=== PATIENT | male | born 1975 | race Two or more races ===

== ENCOUNTER 2017-04-15 01:58 | Emergency (ER) | payer MEDICAID, OTHER ==
[~2017-04-15] VITALS: Ht 167.6 cm; Wt 113.4 kg
[~2017-04-15 01:58] MED LIST: ATE50T PO; LISI-285 PO
[2017-04-15] MEDS ORDERED: IPRATROPIUM BROM 0.5 MG/2.5ML INH SOL NEB ONE (02:00)
[2017-04-15] MEDS ORDERED: ALBUTEROL SULF 2.5 MG/0.5ML(0.5%) NEB SOLN HHN STA (02:00)
[2017-04-15 02:04] VITALS: BP 183/119
[2017-04-15 02:43] LABS: Basophils # (auto) 0.1 uL; Eosinophils # (auto) 0.6 uL; Eosinophils % (auto) 5.1 % (0.0-7.0); Hematocrit 43.7 % (41.0-53.0); Hemoglobin 14.6 g/dL (13.5-17.5); Lymphocytes # (auto) 2.1 uL; Lymphocytes % (auto) 18.6 % (10.0-50.0); Mean Corpuscular Hemoglobin 28.3 pg (28.0-32.0); Mean Corpuscular Hgb Conc. 33.4 g/dL (32.0-36.0); Mean Corpuscular Volume 84.8 fL (80.0-100.0); Mean Platelet Volume 7.7 fL (6.9-10.8); Monocytes % (auto) 9.4 % (0.0-12.0); Neutrophils # (auto) 7.3 uL; Neutrophils % (auto) 65.9 % (37.0-80.0); Platelet Count (auto) 251 10^3/uL (140-450); White Blood Cell 11.1 10^3/uL (4.4-10.8)
[2017-04-15 03:00] LABS: Albumin 3.3 g/dL (3.4-5.0); Calcium 8.1 mg/dL (8.5-10.1); INR 0.96 (0.9-1.15); Partial Thromboplastin Time 30.3 sec (22.64-33.71); Potassium 3.8 mmol/L (3.5-5.1); Prothrombin Time 10.5 sec (9.37-12.3)
[2017-04-15 03:02] LABS: BUN/Creatinine Ratio 15.2
[2017-04-15 03:07] LABS: Bilirubin, Total 0.2 mg/dL (0.2-1.0); Total Protein 7.4 g/dL (6.4-8.2)
== END 2017-04-15 06:04 | disposition left against medical advice (07) ==
LOC: ER 01:59
DX: J45.909 Unspecified asthma, uncomplicated (principal); Z53.21 Procedure and treatment not carried out due to patient leaving prior to being seen by health care provider
CPT/HCPCS: 36415; 71020; 80053; 84484; 85025; 85610; 85730

== ENCOUNTER 2017-04-15 09:09 | Emergency (ER) | payer MEDICAID ==
[~2017-04-15] VITALS: Ht 167.6 cm; Wt 113.4 kg
[2017-04-15 09:54] VITALS: BP 141/90
[2017-04-15] MEDS ORDERED: LEVOFLOXACIN 250 MG TAB PO ONE (10:30)
[2017-04-15] MEDS ORDERED: ALBUTEROL SULF 2.5 MG/0.5ML(0.5%) NEB SOLN NEB ONE (10:30)
[2017-04-15] MEDS ORDERED: methylPREDNISolone SOD SUCC 125 MG/2 ML VL IM ONE (10:30)
[2017-04-15] MEDS ORDERED: IPRATROPIUM BROM 0.5 MG/2.5ML INH SOL NEB ONE (10:30)
== END 2017-04-15 11:02 | disposition home or self-care (01) ==
LOC: ER 09:09
DX: J45.901 Unspecified asthma with (acute) exacerbation (principal); J20.9 Acute bronchitis, unspecified; I10 Essential (primary) hypertension
CPT/HCPCS: 94640; 99283; J2930

== ENCOUNTER 2019-05-01 22:56 | Inpatient (IN) | payer MEDICAID ==
[~2019-05-01] VITALS: Ht 167.6 cm; Wt 110.0 kg
--- NOTE | 2019-05-01 21:35 | NUR ---
Respiratory Culture Sputum sample collected and sent to lab via [facility] system. Will continue care. Addendum: 05/02/19 at 2356 by JULIO VO RN RN CORRECTION: Date of note should be 05/02/19.
[2019-05-01] MEDS ORDERED: IPRATROPIUM BROM 0.5 MG/2.5ML INH SOL NEB ONE (23:15)
[2019-05-01] MEDS ORDERED: cloNIDine HCL 0.1 MG TAB PO ONE (23:15)
[2019-05-01] MEDS ORDERED: ALBUTEROL SULF 2.5 MG/0.5ML(0.5%) NEB SOLN NEB ONE (23:15)
[2019-05-02 01:41] LABS: Hematocrit 46.8 % (41.0-53.0); Hemoglobin 15.9 g/dL (13.5-17.5); Mean Corpuscular Hemoglobin 28.6 pg (28.0-32.0); Mean Corpuscular Hgb Conc. 33.9 g/dL (32.0-36.0); Mean Corpuscular Volume 84.5 fL (80.0-100.0); Platelet Count (auto) 232 10^3/uL (140-450); Red Blood Cells 5.55 10^6/uL (4.5-5.90); Red Cell Distribution Width 13.4 % (11.8-14.3)
[2019-05-02] MEDS ORDERED: IPRATROPIUM BROM 0.5 MG/2.5ML INH SOL NEB ONE (02:00)
[2019-05-02] MEDS ORDERED: ALBUTEROL SULF 2.5 MG/0.5ML(0.5%) NEB SOLN NEB ONE ×2 (02:00→07:15)
[2019-05-02 02:01] LABS: Basophils % (manual) 0 (0.0-2.0); Blast Cells 0; Eosinophils % (manual) 0 (0-7); Metamyelocytes % 0; Myelocytes % 0; Promyelocytes % 0; Reactive Lymphocytes 0
[2019-05-02 02:04] LABS: Albumin 3.3 g/dL (3.4-5.0); Calcium 8.3 mg/dL (8.5-10.1); Magnesium 2.2 mg/dL (1.6-2.6); Potassium 4.3 mmol/L (3.5-5.1)
[2019-05-02 02:07] LABS: INR 0.96 (0.9-1.15); Partial Thromboplastin Time 30.8 sec (23.64-32.05)
[2019-05-02 02:11] LABS: Bilirubin, Total 0.2 mg/dL (0.2-1.0); Total Protein 7.7 g/dL (6.4-8.2)
[2019-05-02 02:21] LABS: Band Neutrophils % (manual) 10; Lymphocytes % (manual) 6 (10.0-50.0); Monocytes % (manual) 4 (0-12)
[2019-05-02] MEDS ORDERED: methylPREDNISolone SOD SUCC 125 MG/2 ML VL IV ONE (07:15)
[2019-05-02] MEDS ORDERED: ENOXAPARIN SOD 120 MG/0.8 ML SYRINGE SC ONE (07:30)
[2019-05-02] MEDS ORDERED: ASPirin 81 mg TAB PO ONE (07:30)
[2019-05-02 07:50] LABS: Lactic Acid w/Reflex 2.2 mmol/L (0.4-2.0)
[2019-05-02] MEDS ORDERED: ONDANSETRON HCL 4 MG/2 ML VIAL IV PRN (09:15)
[2019-05-02] MEDS ORDERED: ACETAMINOPHEN 500 MG TAB PO PRN (09:15)
[2019-05-02] MEDS ORDERED: MORPHINE SULF INJ 2 MG/ML SYRINGE 1ML IV PRN ×2 (09:15)
[2019-05-02] MEDS ORDERED: HYDROcodone-ACET 5/325MG TAB PO PRN (09:15)
[2019-05-02] MEDS ORDERED: NITROGLYCERIN 0.4 MG SL TAB SL PRN (09:15)
[2019-05-02] MEDS: ALBUTEROL SULF 2.5 MG/0.5ML(0.5%) NEB SOLN NEB SCH ×4 (09:45→22:57)
[2019-05-02] MEDS: BUDESONIDE (INHALATION) 0.5 MG/2 ML NEB NEB SCH ×2 (09:45→22:57)
[2019-05-02] MEDS: IPRATROPIUM BROM 0.5 MG/2.5ML INH SOL NEB SCH ×4 (09:45→22:57)
[2019-05-02] MEDS: cefTRIAXone 1GM/50ML D5W 50 ML IV SCH ×2 (09:48→10:00)
[2019-05-02 09:57] LABS: CRP High Sensitivity 2.19 mg/dL (< 0.3)
[2019-05-02] MEDS: SODIUM CHLORIDE 0.9% 1,000 ML IV SCH ×2 (09:57→20:13)
[2019-05-02] MEDS ORDERED: FAMOTIDINE 20 MG TAB PO SCH (10:00)
[2019-05-02] MEDS: LEVOFLOXACIN 750MG 150 ML IV ONE ×2 (10:07→10:10)
[2019-05-02] MEDS: FAMOTIDINE 20 MG TAB PO SCH (10:26)
[2019-05-02] MEDS: LISINOPRIL 10 MG TAB PO SCH (10:27)
[2019-05-02] MEDS: ASPirin-EC 81 mg tab PO SCH (10:27)
[2019-05-02] MEDS: METOPROLOL TARTRATE 25 MG TAB PO SCH ×2 (10:27→21:28)
--- NOTE | 2019-05-02 11:00 | NUR ---
PT ADMITTED TO FLOOR FROM E.R.. NO DISTRESS NOTED. PT REPORTS NO PAIN AT THIS TIME. PT ORIENTED TO UNIT AND CALL LIGHT. BED IN LOWEST LOCKED POSITION. AT BEDSIDE. VITALS: 98.1, HR 94, 02 92, BP 148/93, RR 18. URINE SAMPLE COLLECTED AND SENT TO LAB.
[2019-05-02] MEDS: AZITHROMYCIN 500MG/ 250ML 250 ML IV SCH (11:18)
[2019-05-02] MEDS ORDERED: DEXT1LIQ99 PO (11:23)
[2019-05-02] MEDS ORDERED: ALBU108A5 IN (11:23)
[2019-05-02] MEDS ORDERED: INFLUENZA QUAD 2019-2020 0.5ml SYRG IM ONE (11:45)
[2019-05-02] MEDS: amLODIPine BESYLATE 5 MG TAB PO SCH (12:13)
[2019-05-02 12:38] LABS: Amphetamine Screen, Urine POSITIVE (NEGATIVE); Barbiturate Scree,Urine NEGATIVE (NEGATIVE); Benzodiazephine Screen, Urine NEGATIVE (NEGATIVE); Cannabinoid Screen, Urine NEGATIVE (NEGATIVE); Cocaine Screen, Urine NEGATIVE (NEGATIVE); Opiate Scree,Urine NEGATIVE (NEGATIVE); Phencyclidine Screen, Urine NEGATIVE (NEGATIVE)
[2019-05-02 13:00] VITALS: BP 131/97
--- NOTE | 2019-05-02 13:12 | NUR ---
PT REPORTS HE FEELS A LITTLE SOB. ASSESSED ON 2L NC IS 100%. HR 80 BPM. PT REQUESTING BREATHING TX. CALLED PBX AND PAGED RT TO PATIENT ROOM.
--- NOTE | 2019-05-02 15:58 | NUR ---
RESPIRATORY THERAPY REPORT PATIENT IS SWEATY. ASSESSED PT, PT ASLEEP IN BED, MILD DIAPHORESIS NOTED ON PT FOREHEAD. WOKE PATIENT AND ASKED HOW HE IS DOING. PT REPORTS HE FEELS BETTER NOW AFTER BREATHING TREATMENT. PT REPORTS NO SOB OR CHEST PAIN. HE REPORTS, "IM JUST TIRED." WILL CONTINUE TO MONITOR.
[2019-05-02 17:27] VITALS: BP 153/80
--- NOTE | 2019-05-02 19:30 | NUR ---
Opening Shift Note Assumed care of patient, eyes closed, respirations even and unlabored, appears asleep. No S/S of distress/SOB or pain. Audible expiratory wheezing noted. Patient awakens to name and touch. Bed in lowest locked position, side rails up x2, call light within reach. Instructed on POC and to call for assist PRN, will continue to monitor for changes Q1hr and PRN.
[2019-05-02] MEDS: MONTELUKAST SODIUM 10 MG TAB PO SCH (21:28)
[2019-05-02] MEDS: ATORVASTATIN 20 MG TAB PO SCH (21:29)
[2019-05-02 22:00] VITALS: BP 115/73
[2019-05-03 05:15] VITALS: BP 132/77
[2019-05-03 05:17] LABS: Basophils # (auto) 0 uL; Basophils % (auto) 0.1 % (0.0-2.0); Eosinophils # (auto) 0 uL; Hematocrit 46.6 % (41.0-53.0); Hemoglobin 15.3 g/dL (13.5-17.5); Lymphocytes # (auto) 1.1 uL; Mean Corpuscular Hemoglobin 28.2 pg (28.0-32.0); Mean Corpuscular Volume 85.6 fL (80.0-100.0); Monocytes # (auto) 1.4 uL; Monocytes % (auto) 10.4 % (0.0-12.0); Neutrophils # (auto) 10.8 uL; Neutrophils % (auto) 81.5 % (37.0-80.0); Nucleated Red Blood Cells % 0.1 %; Platelet Count (auto) 242 10^3/uL (140-450); Red Blood Cells 5.44 10^6/uL (4.5-5.90); Red Cell Distribution Width 13.6 % (11.8-14.3); White Blood Cell 13.3 10^3/uL (4.4-10.8)
[2019-05-03 05:40] LABS: BUN/Creatinine Ratio 19.6; Calcium 8.6 mg/dL (8.5-10.1); Potassium 4.5 mmol/L (3.5-5.1)
[2019-05-03] MEDS: SODIUM CHLORIDE 0.9% 1,000 ML IV SCH (05:57)
[2019-05-03] MEDS: ALBUTEROL SULF 2.5 MG/0.5ML(0.5%) NEB SOLN NEB SCH ×5 (06:05→22:10)
[2019-05-03] MEDS: IPRATROPIUM BROM 0.5 MG/2.5ML INH SOL NEB SCH ×5 (06:05→22:10)
--- NOTE | 2019-05-03 06:46 | NUR ---
Closing Note Patient lying in bed, eyes closed, respirations even and unlabored, appears asleep. No s/s of distress. Bed in lowest locked position, side rails up x2, call light, within reach. Will endorse care to dayshift RN.
--- NOTE | 2019-05-03 07:20 | NUR ---
Open Shift Note Received report on patient, asleep in bed with arms above head. Patient easily awoken and shows no signs of distress at this time. Patient states he feels "much better". Discussed POC with patient. Bed in lowest locked position, side rails up x2 and call light within reach. Will continue to monitor.
[2019-05-03 09:00] VITALS: BP_SYST 142; BP_SYST 147; BP_DIAS 70; BP_DIAS 87
[2019-05-03] MEDS: cefTRIAXone 1GM/50ML D5W 50 ML IV SCH (09:10)
[2019-05-03] MEDS: BUDESONIDE (INHALATION) 0.5 MG/2 ML NEB NEB SCH ×2 (09:50→22:10)
[2019-05-03] MEDS: AZITHROMYCIN 500MG/ 250ML 250 ML IV SCH (09:58)
[2019-05-03] MEDS: amLODIPine BESYLATE 5 MG TAB PO SCH (10:01)
[2019-05-03] MEDS: LISINOPRIL 10 MG TAB PO SCH (10:01)
[2019-05-03] MEDS: ASPirin-EC 81 mg tab PO SCH (10:01)
[2019-05-03] MEDS: METOPROLOL TARTRATE 25 MG TAB PO SCH ×2 (10:02→21:39)
[2019-05-03] MEDS: FAMOTIDINE 20 MG TAB PO SCH (10:07)
--- NOTE | 2019-05-03 11:05 | NUR ---
Dr Gunn at Bedside Dr Gunn at patient bedside.
[2019-05-03] MEDS ORDERED: IOHEXOL 350 MG/ML 100ML IJ ONE (11:48)
[2019-05-03] MEDS ORDERED: methylPREDNISolone SOD SUCC 125 MG/2 ML VL IV ONE (12:00)
[2019-05-03] MEDS ORDERED: ACETYLCYSTEINE 10 %(100MG/ML) SOL 4ML NEB SCH (12:00)
[2019-05-03 12:34] LABS: Hepatitis B Surface Antibody Negative
[2019-05-03 13:00] VITALS: BP 135/91
[2019-05-03 13:12] LABS: Hepatitis A Total Antibody Positive
[2019-05-03 13:29] LABS: Hepatitis B Core Total AB Negative
[2019-05-03 13:30] LABS: Hepatitis B Surface Antigen Negative (Negative); Hepatitis C Antibody Negative (Negative)
[2019-05-03 17:00] VITALS: BP 129/84
[2019-05-03 17:03] LABS: Urine WBC None Seen /hpf (0 - 3)
[2019-05-03 17:38] LABS: Urine Bacteria NONE SEEN /hpf (None Seen); Urine Blood Negative /uL (Negative)
[2019-05-03 18:12] LABS: Urine Specific Gravity > 1.050 (1.001-1.035)
[2019-05-03] MEDS: ACETYLCYSTEINE 10 %(100MG/ML) SOL 4ML NEB SCH ×2 (18:58→22:11)
--- NOTE | 2019-05-03 19:52 | NUR ---
received pt from day rn poc reviewed
[2019-05-03 21:00] VITALS: BP 145/87
[2019-05-03] MEDS: methylPREDNISolone SOD SUCC 125 MG/2 ML VL IV SCH (21:34)
[2019-05-03] MEDS: ATORVASTATIN 20 MG TAB PO SCH (21:39)
[2019-05-03] MEDS: MONTELUKAST SODIUM 10 MG TAB PO SCH (21:39)
--- NOTE | 2019-05-03 22:51 | NUR ---
resting comfortable resp even and unlabored, denies pain
--- NOTE | 2019-05-04 02:29 | NUR ---
resting with eyes closed resp even and unlabored
[2019-05-04 04:30] VITALS: BP 131/88
[2019-05-04 05:55] LABS: Basophils # (auto) 0 uL; Basophils % (auto) 0.1 % (0.0-2.0); Eosinophils # (auto) 0 uL; Hematocrit 46.5 % (41.0-53.0); Hemoglobin 15.4 g/dL (13.5-17.5); Lymphocytes # (auto) 1.2 uL; Lymphocytes % (auto) 6.6 % (10.0-50.0); Mean Corpuscular Hemoglobin 28.1 pg (28.0-32.0); Mean Corpuscular Hgb Conc. 33.1 g/dL (32.0-36.0); Mean Corpuscular Volume 84.9 fL (80.0-100.0); Monocytes # (auto) 0.4 uL; Monocytes % (auto) 2.1 % (0.0-12.0); Neutrophils # (auto) 16.6 uL; Neutrophils % (auto) 91.2 % (37.0-80.0); Nucleated Red Blood Cells % 0.1 %; Platelet Count (auto) 266 10^3/uL (140-450); Red Blood Cells 5.48 10^6/uL (4.5-5.90); Red Cell Distribution Width 13.5 % (11.8-14.3); White Blood Cell 18.2 10^3/uL (4.4-10.8)
[2019-05-04 06:08] LABS: Albumin 3.3 g/dL (3.4-5.0); Calcium 8.5 mg/dL (8.5-10.1); Potassium 4.4 mmol/L (3.5-5.1)
[2019-05-04 06:14] LABS: Bilirubin, Total 0.4 mg/dL (0.2-1.0); Total Protein 7.8 g/dL (6.4-8.2)
[2019-05-04] MEDS: ACETYLCYSTEINE 10 %(100MG/ML) SOL 4ML NEB SCH ×3 (06:39→13:23)
[2019-05-04] MEDS: IPRATROPIUM BROM 0.5 MG/2.5ML INH SOL NEB SCH ×3 (06:39→13:23)
[2019-05-04] MEDS: ALBUTEROL SULF 2.5 MG/0.5ML(0.5%) NEB SOLN NEB SCH ×3 (06:39→13:23)
[2019-05-04] MEDS: BUDESONIDE (INHALATION) 0.5 MG/2 ML NEB NEB SCH (06:39)
--- NOTE | 2019-05-04 06:58 | NUR ---
awoke resp even and unlabored
--- NOTE | 2019-05-04 06:59 | NUR ---
report given to am nurse poc reviewed
--- NOTE | 2019-05-04 07:20 | NUR ---
Open Shift Note Received report on patient, awake and sitting up in chair next to bed. Patient shows no signs of distress at this time, states he is feeling "a little bit better". Discussed POC with patient, patient verbalized understanding. Bed in lowest locked position, side rails up x2 and call light within reach. Will continue to monitor.
[2019-05-04 07:46] LABS: BUN/Creatinine Ratio 21.8
[2019-05-04] MEDS: methylPREDNISolone SOD SUCC 125 MG/2 ML VL IV SCH (09:31)
[2019-05-04] MEDS: FAMOTIDINE 20 MG TAB PO SCH (09:31)
[2019-05-04] MEDS: ASPirin-EC 81 mg tab PO SCH (09:31)
[2019-05-04] MEDS: cefTRIAXone 1GM/50ML D5W 50 ML IV SCH (09:31)
[2019-05-04] MEDS: amLODIPine BESYLATE 5 MG TAB PO SCH (09:32)
[2019-05-04] MEDS: LISINOPRIL 10 MG TAB PO SCH (09:32)
[2019-05-04] MEDS: METOPROLOL TARTRATE 25 MG TAB PO SCH (09:32)
[2019-05-04 10:01] VITALS: BP 162/89
[2019-05-04] MEDS ORDERED: methIMAzole 5 MG TAB PO ONE (11:15)
[2019-05-04 12:42] VITALS: BP 164/95
--- NOTE | 2019-05-04 13:11 | NUR ---
Paged Dr Gunn Paged Dr Gunn to inform him that even after morning med pass patient's BP still elevated at 164/95 HR 88. New orders in place.
[2019-05-04] MEDS: AZITHROMYCIN 500MG/ 250ML 250 ML IV SCH (13:13)
[2019-05-04] MEDS ORDERED: METOPROLOL TARTRATE 1MG/1ML-5ML VIAL IV ONE (13:15)
[2019-05-04 15:02] VITALS: BP 146/95
--- NOTE | 2019-05-04 17:00 | NUR ---
Discharged Discharge instructions given as ordered. Encourage to follow up with PCP as instructed. Patient given information for Dr Gunn and [facility]. All other questions and concerns addressed. Patient verbalized understanding. Medication reconciliation form completed and copy given to patient. [facility] delivered medications to bedside. IV removed with catheter intact, pressure dressing applied. Telemetry unit returned to ICU. Patient taken to vehicle via wheelchair with all personal belongings, accompanied by staff and family member. No distress noted at time of departure.
[2019-05-04] MEDS ORDERED: METOPROLOL TARTRATE 25 MG TAB PO SCH (22:00)
[2019-05-05] MEDS ORDERED: methIMAzole 5 MG TAB PO SCH (10:00)
[2019-05-05] MEDS ORDERED: AZITHROMYCIN 250 MG TAB PO SCH (10:00)
== END 2019-05-04 17:00 | disposition home or self-care (01) | DRG 141 ==
LOC: ER 23:01 → TELE 23:02 → TELE-WESTW 05-02 11:06
PROVIDERS: ADMIT Nurse Practitioner Acute Care; ATTEND Internal Medicine
DX: J45.901 Unspecified asthma with (acute) exacerbation (principal); I21.4 Non-ST elevation (NSTEMI) myocardial infarction; J96.00 Acute respiratory failure, unspecified whether with hypoxia or hypercapnia; E66.9 Obesity, unspecified; I10 Essential (primary) hypertension; F15.10 Other stimulant abuse, uncomplicated; E11.9 Type 2 diabetes mellitus without complications; E05.90 Thyrotoxicosis, unspecified without thyrotoxic crisis or storm; Z68.39 Body mass index [BMI] 39.0-39.9, adult; Z88.0 Allergy status to penicillin; Z28.21 Immunization not carried out because of patient refusal; Z83.3 Family history of diabetes mellitus; Z71.51 Drug abuse counseling and surveillance of drug abuser
CPT/HCPCS: 36415; 71045; 71046; 71275; 80048; 80053; 80061; 80307; 81001; 83036; 83605; 83735; 83880; 84439; 84443; 84484; 85007; 85025; 85027; 85610; 85730; 86141; 86703; 86704; 86706; 86708; 86803; 87040; 87070; 87205; 87340; 87804; 93005; 93306; 94640; 96365; 96372; 96375; 99291; G0378; J0696; J1956

== ENCOUNTER 2021-03-26 11:29 | Inpatient (IN) | payer MEDICAID ==
[~2021-03-26] VITALS: Ht 167.6 cm; Wt 115.8 kg
[~2021-03-26 11:29] MED LIST changes: +ALBU108A5 IN; -ATE50T PO; +DEXT1LIQ99 PO; -LISI-285 PO
[2021-03-26 15:05] LABS: Basophils # (auto) 0.1 10 ^3/uL (0-0.2); Basophils % (auto) 0.6 % (0.0-2.0); Eosinophils # (auto) 0.3 10 ^3/uL (0-0.8); Eosinophils % (auto) 3.1 % (0.0-7.0); Hematocrit 45.1 % (41.0-53.0); Lymphocytes # (auto) 1.7 10 ^3/uL (0.4-5.4); Lymphocytes % (auto) 17.4 % (10.0-50.0); Mean Corpuscular Hgb Conc. 33.3 g/dL (32.0-36.0); Mean Corpuscular Volume 84.2 fL (80.0-100.0); Monocytes # (auto) 0.9 10 ^3/uL (0-1.3); Monocytes % (auto) 9.7 % (0.0-12.0); Neutrophils # (auto) 6.6 10 ^3/uL (1.6-8.6); Neutrophils % (auto) 69.2 % (37.0-80.0); Red Blood Cells 5.36 10^6/uL (4.5-5.90); Red Cell Distribution Width 13.3 % (11.8-14.3); White Blood Cell 9.5 10^3/uL (4.4-10.8)
[2021-03-26 15:24] LABS: BUN/Creatinine Ratio 11.3; Calcium 8.6 mg/dL (8.5-10.1); Potassium 3.7 mmol/L (3.5-5.1)
[2021-03-26 15:29] LABS: Bilirubin, Total 0.5 mg/dL (0.2-1.0); Total Protein 7.2 g/dL (6.4-8.2)
[2021-03-26] MEDS ORDERED: PANTOPRAZOLE 40 MG/10 ML VIAL INJ IV ONE (17:30)
[2021-03-26] MEDS ORDERED: ASPirin 81 mg TAB PO ONE (17:30)
[2021-03-26] MEDS ORDERED: NITROGLYCERIN 0.4 MG SL TAB SL PRN (18:45)
[2021-03-26] MEDS ORDERED: HYDROcodone-ACET 5/325MG TAB PO PRN (18:45)
[2021-03-26] MEDS ORDERED: MORPHINE SULFATE INJECTION 2 MG/ML SYRG IV PRN (18:45)
[2021-03-26] MEDS ORDERED: ONDANSETRON HCL 4 MG/2 ML VIAL IV PRN (18:45)
[2021-03-26] MEDS: METOPROLOL TARTRATE 25 MG TAB PO SCH (21:45)
[2021-03-26] MEDS: hydrALAZINE HCL 20 MG/ML VL IV PRN (22:15)
[2021-03-26] MEDS: ATORVASTATIN 20 MG TAB PO SCH (22:17)
[2021-03-26] MEDS ORDERED: LISINOPRIL 20 MG TAB PO ONE (23:15)
[2021-03-26] MEDS ORDERED: LORazepam 2MG/ML-1ML VIAL IV PRN (23:15)
[2021-03-27 01:28] VITALS: BP 185/116
[2021-03-27 07:09] LABS: Basophils # (auto) 0.1 10 ^3/uL (0-0.2); Basophils % (auto) 0.5 % (0.0-2.0); Eosinophils # (auto) 0.4 10 ^3/uL (0-0.8); Eosinophils % (auto) 3.7 % (0.0-7.0); Hematocrit 47.2 % (41.0-53.0); Hemoglobin 15.9 g/dL (13.5-17.5); Lymphocytes # (auto) 1.6 10 ^3/uL (0.4-5.4); Lymphocytes % (auto) 16.1 % (10.0-50.0); Mean Corpuscular Hemoglobin 28.8 pg (28.0-32.0); Mean Corpuscular Hgb Conc. 33.7 g/dL (32.0-36.0); Mean Corpuscular Volume 85.7 fL (80.0-100.0); Monocytes % (auto) 9.6 % (0.0-12.0); Neutrophils # (auto) 7.2 10 ^3/uL (1.6-8.6); Neutrophils % (auto) 70.1 % (37.0-80.0); Red Blood Cells 5.51 10^6/uL (4.5-5.90); Red Cell Distribution Width 13.7 % (11.8-14.3); White Blood Cell 10.2 10^3/uL (4.4-10.8)
[2021-03-27] MEDS ORDERED: guaiFENesin 200 MG/10 ML UD GT PRN (07:15)
[2021-03-27 07:26] LABS: Calcium 8.7 mg/dL (8.5-10.1); Potassium 4.2 mmol/L (3.5-5.1)
[2021-03-27 07:28] LABS: BUN/Creatinine Ratio 13.3
[2021-03-27] MEDS: ASPirin 81 mg TAB PO SCH (10:11)
[2021-03-27] MEDS: LISINOPRIL 20 MG TAB PO SCH (10:12)
[2021-03-27] MEDS: METOPROLOL TARTRATE 25 MG TAB PO SCH (10:12)
[2021-03-27] MEDS: ACETAMINOPHEN 325 MG TAB PO PRN ×2 (11:39→23:27)
[2021-03-27] MEDS: hydrALAZINE HCL 20 MG/ML VL IV PRN (11:39)
[2021-03-27] MEDS ORDERED: FOLIC ACID 1 MG, MULTIPLE VITAMIN 10 ML, MAGNESIUM SULF SDV 50% 8 MEQ, THIAMINE INJ 100... INJ SCH ×10 (12:00)
[2021-03-27 13:00] VITALS: BP_SYST 134; BP_SYST 149; BP_DIAS 80; BP_DIAS 82
[2021-03-27] MEDS: METOPROLOL TARTRATE 25 MG TAB PO ONE (13:00)
[2021-03-27] MEDS ORDERED: predniSONE 20 MG TAB PO SCH (13:15)
[2021-03-27 17:16] VITALS: BP 134/80
[2021-03-27] MEDS ORDERED: ALBUTEROL SULF 2.5 MG/0.5ML(0.5%) NEB SOLN NEB PRN (18:00)
[2021-03-27 22:00] VITALS: BP 143/92
[2021-03-27] MEDS: METOPROLOL TARTRATE 50 MG TAB PO SCH (22:26)
[2021-03-27] MEDS: ATORVASTATIN 20 MG TAB PO SCH (22:27)
[2021-03-28 05:00] VITALS: BP_SYST 108; BP_SYST 140; BP_DIAS 46; BP_DIAS 74
[2021-03-28] MEDS ORDERED: ADENOSINE 84 MG in GIVE UN-DILUTED 0 ML IV STA (07:54)
[2021-03-28] MEDS: LISINOPRIL 20 MG TAB PO SCH (08:42)
[2021-03-28] MEDS: ASPirin 81 mg TAB PO SCH (08:42)
[2021-03-28 08:54] VITALS: BP 153/97
[2021-03-28] MEDS: METOPROLOL TARTRATE 50 MG TAB PO SCH ×2 (09:25→21:37)
[2021-03-28 17:09] VITALS: BP 163/97
[2021-03-28] MEDS ORDERED: MET50T PO (17:24)
[2021-03-28] MEDS ORDERED: LISI20TA28 PO (17:24)
[2021-03-28] MEDS ORDERED: ALBU108A5 IN (17:24)
[2021-03-28] MEDS ORDERED: ASPI1CHW15 PO (17:24)
[2021-03-28] MEDS ORDERED: ATOR20TA50 PO (17:24)
[2021-03-28] MEDS: hydrALAZINE HCL 20 MG/ML VL IV PRN (17:49)
[2021-03-28] MEDS: ACETAMINOPHEN 325 MG TAB PO PRN (17:50)
[2021-03-28] MEDS: ATORVASTATIN 20 MG TAB PO SCH (21:38)
[2021-03-28 22:00] VITALS: BP 158/99
[2021-03-29] VITALS (7 sets, daily range): BP systolic 136–166; BP diastolic 76–106
[2021-03-29] MEDS: METOPROLOL TARTRATE 50 MG TAB PO SCH (10:06)
[2021-03-29] MEDS: LISINOPRIL 20 MG TAB PO SCH (10:06)
[2021-03-29] MEDS: ASPirin 81 mg TAB PO SCH (10:06)
[2021-03-29 10:59] LABS: Basophils # (auto) 0.1 10 ^3/uL (0-0.2); Basophils % (auto) 0.9 % (0.0-2.0); Eosinophils # (auto) 0.3 10 ^3/uL (0-0.8); Eosinophils % (auto) 2.9 % (0.0-7.0); Hemoglobin 15.1 g/dL (13.5-17.5); Lymphocytes # (auto) 1.2 10 ^3/uL (0.4-5.4); Lymphocytes % (auto) 11.1 % (10.0-50.0); Mean Corpuscular Hemoglobin 28.1 pg (28.0-32.0); Mean Corpuscular Hgb Conc. 32.7 g/dL (32.0-36.0); Mean Corpuscular Volume 85.8 fL (80.0-100.0); Monocytes % (auto) 9.4 % (0.0-12.0); Neutrophils # (auto) 8.1 10 ^3/uL (1.6-8.6); Neutrophils % (auto) 75.7 % (37.0-80.0); Nucleated Red Blood Cells % 0.1 %; Red Blood Cells 5.37 10^6/uL (4.5-5.90); Red Cell Distribution Width 13.6 % (11.8-14.3); White Blood Cell 10.6 10^3/uL (4.4-10.8)
[2021-03-29] MEDS ORDERED: IODIXANOL 320MG/ML 100ML BTL IV ONE ×2 (11:18→12:41)
[2021-03-29] MEDS ORDERED: LIDOCAINE 2%HCL (LOCAL ANESTH.) INJ 20ML MDV ONE (11:18)
[2021-03-29 11:22] LABS: INR 1.03 (0.9-1.15); Partial Thromboplastin Time 29.7 sec (23.6-33.0)
[2021-03-29 11:28] LABS: Albumin 3.3 g/dL (3.4-5.0); Calcium 8.8 mg/dL (8.5-10.1); Potassium 4.1 mmol/L (3.5-5.1)
[2021-03-29] MEDS ORDERED: amLODIPine BESYLATE 5 MG TAB PO ONE (11:30)
[2021-03-29 11:32] LABS: BUN/Creatinine Ratio 17.9; Bilirubin, Total 0.5 mg/dL (0.2-1.0); Total Protein 6.7 g/dL (6.4-8.2)
[2021-03-29] MEDS ORDERED: HEPARIN SODIUM (PORCINE) 5000 UNITS/ML 1ML VIAL ONE (12:36)
[2021-03-29] MEDS ORDERED: VERAPAMIL 2.5MG/ML INJ 2ML VIAL IV ONE (12:36)
[2021-03-29] MEDS ORDERED: ANGIOMAX 250 MG VIAL IV ONE (12:36)
[2021-03-29] MEDS ORDERED: fentaNYL CITRATE 100 MCG/2 ML VL ONE (12:37)
[2021-03-29] MEDS ORDERED: MIDAZOLAM HCL 2MG/2ML 2ml VIAL (1mg/ml) ONE (12:37)
[2021-03-29] MEDS ORDERED: SODIUM CHL 0.9% 0 ML ONE (12:37)
[2021-03-29 13:31] LABS: Urine Bacteria NONE SEEN /hpf (None Seen); Urine Blood Negative /uL (Negative); Urine Mucus FEW (None Seen); Urine Specific Gravity 1.025 (1.001-1.035); Urine WBC 1 /hpf (0 - 3)
[2021-03-30] MEDS ORDERED: amLODIPine BESYLATE 5 MG TAB PO SCH (10:00)
[2021-03-30] MEDS ORDERED: AMLO-496 PO (12:16)
== END 2021-03-29 17:36 | disposition home or self-care (01) | DRG 190 ==
LOC: ER 11:29 → TELE 18:44 → TELE-WESTW 03-27 12:48
PROVIDERS: ADMIT Internal Medicine; ATTEND Internal Medicine
PROC: 4A023N7 Measurement of Cardiac Sampling and Pressure, Left Heart, Percutaneous Approach (ICD-10-PCS; principal; 2021-03-29)
PROC: B211YZZ Fluoroscopy of Multiple Coronary Arteries using Other Contrast (ICD-10-PCS; 2021-03-29)
DX: I21.4 Non-ST elevation (NSTEMI) myocardial infarction (principal); J96.01 Acute respiratory failure with hypoxia; J45.909 Unspecified asthma, uncomplicated; R04.2 Hemoptysis; E66.01 Morbid (severe) obesity due to excess calories; J98.11 Atelectasis; Z20.822 Contact with and (suspected) exposure to COVID-19; I50.9 Heart failure, unspecified; I11.0 Hypertensive heart disease with heart failure; I25.10 Atherosclerotic heart disease of native coronary artery without angina pectoris; Z83.3 Family history of diabetes mellitus; Z88.0 Allergy status to penicillin; Z91.14 Patient's other noncompliance with medication regimen; Z68.41 Body mass index [BMI] 40.0-44.9, adult; Z91.19 Patient's noncompliance with other medical treatment and regimen; R05 Cough
CPT/HCPCS: 36415; 71045; 78452; 80048; 80053; 81001; 83880; 84484; 85025; 85379; 85610; 85730; 86850; 86900; 86901; 87426; 93005; 93017; 93306; 93458; 93970; 94640; 96365; 96375; 99152; C9113; G0378; J0153; J2250; Q9967

== ENCOUNTER 2021-12-27 03:10 | Emergency (ER) | payer MEDICAID ==
[~2021-12-27] VITALS: Ht 167.6 cm; Wt 113.4 kg
[~2021-12-27 03:10] MED LIST changes: +AMLO-496 PO; +ASPI1CHW15 PO; +ATOR20TA50 PO; +LISI20TA28 PO; +MET50T PO
[2021-12-27] MEDS ORDERED: ALBUTEROL SULF 2.5 MG/0.5ML(0.5%) NEB SOLN NEB ONE ×2 (03:30→07:00)
[2021-12-27] MEDS ORDERED: IPRATROPIUM BROM 0.5 MG/2.5ML INH SOL NEB ONE ×2 (03:30→07:00)
[2021-12-27] MEDS ORDERED: methylPREDNISolone SOD SUCC 125 MG/2 ML VL IM ONE (07:00)
[2021-12-27 07:44] VITALS: BP 170/92
[2021-12-27] MEDS ORDERED: PRED20TA2 PO (07:50)
[2021-12-27] MEDS ORDERED: ALB5IS NEB (07:50)
[2021-12-27] MEDS ORDERED: AZIT500T66 PO (07:50)
== END 2021-12-27 07:56 | disposition home or self-care (01) ==
LOC: ER 03:10
DX: J45.901 Unspecified asthma with (acute) exacerbation (principal); I10 Essential (primary) hypertension
CPT/HCPCS: 71046; 94640; 96372; 99283; J2930; J7644

== ENCOUNTER 2022-02-07 14:11 | Emergency (ER) | payer MEDICAID ==
[~2022-02-07] VITALS: Ht 167.6 cm; Wt 113.6 kg
[~2022-02-07 14:11] MED LIST changes: +ALB5IS NEB; +AZIT500T66 PO; +PRED20TA2 PO
[2022-02-07 14:20] VITALS: BP 185/95
[2022-02-07] MEDS ORDERED: IPRATROPIUM BROM 0.5 MG/2.5ML INH SOL NEB ONE (14:45)
[2022-02-07] MEDS ORDERED: ALBUTEROL SULF 2.5 MG/0.5ML(0.5%) NEB SOLN NEB ONE (14:45)
[2022-02-07] MEDS ORDERED: ALBUTEROL SULF 2.5 MG/0.5ML(0.5%) NEB SOLN HHN ONE (15:00)
[2022-02-07] MEDS ORDERED: IPRATROPIUM BROM 0.5 MG/2.5ML INH SOL HHN ONE (15:00)
[2022-02-07] MEDS ORDERED: methylPREDNISolone SOD SUCC 125 MG/2 ML VL IV ONE (15:00)
[2022-02-07 15:43] LABS: Basophils # (auto) 0.1 10 ^3/uL (0-0.2); Basophils % (auto) 0.8 % (0.0-2.0); Eosinophils # (auto) 0.6 10 ^3/uL (0-0.8); Eosinophils % (auto) 5.7 % (0.0-7.0); Hematocrit 48.9 % (41.0-53.0); Hemoglobin 15.7 g/dL (13.5-17.5); Lymphocytes # (auto) 2.2 10 ^3/uL (0.4-5.4); Lymphocytes % (auto) 21.3 % (10.0-50.0); Mean Corpuscular Hemoglobin 27.5 pg (28.0-32.0); Mean Corpuscular Hgb Conc. 32.1 g/dL (32.0-36.0); Mean Corpuscular Volume 85.6 fL (80.0-100.0); Monocytes % (auto) 9.8 % (0.0-12.0); Neutrophils # (auto) 6.5 10 ^3/uL (1.6-8.6); Neutrophils % (auto) 62.4 % (37.0-80.0); Nucleated Red Blood Cells % 0.1 %; Red Blood Cells 5.71 10^6/uL (4.5-5.90); White Blood Cell 10.5 10^3/uL (4.4-10.8)
[2022-02-07] MEDS ORDERED: methylPREDNISolone SOD SUCC 125 MG/2 ML VL IM ONE (15:45)
[2022-02-07 15:46] LABS: Albumin 3.8 g/dL (3.4-5.0); BUN/Creatinine Ratio 17.9; Calcium 9.1 mg/dL (8.5-10.1); Magnesium 2.4 mg/dL (1.6-2.6); Potassium 3.5 mmol/L (3.5-5.1)
[2022-02-07 15:47] LABS: INR 0.92 (0.9-1.15)
[2022-02-07 15:57] LABS: Bilirubin, Total 0.3 mg/dL (0.2-1.0); Total Protein 7.6 g/dL (6.4-8.2)
== END 2022-02-07 19:37 | disposition left against medical advice (07) ==
LOC: ER 14:11
DX: J45.901 Unspecified asthma with (acute) exacerbation (principal); R77.8 Other specified abnormalities of plasma proteins; I10 Essential (primary) hypertension; Z79.82 Long term (current) use of aspirin; Z79.899 Other long term (current) drug therapy; Z88.0 Allergy status to penicillin
CPT/HCPCS: 36415; 71045; 80053; 83735; 83880; 84484; 85025; 85610; 85730; 94640; 96372; 99285; J2930; J7644

== ENCOUNTER 2022-02-24 17:08 | Inpatient (IN) | payer MEDICAID ==
[2022-02-24] VITALS (10 sets, daily range): BP systolic 136–215; BP diastolic 68–118
[~2022-02-24] VITALS: Ht 182.9 cm; Wt 114.0 kg
[2022-02-24] MEDS ORDERED: IPRATROPIUM BROM 0.5 MG/2.5ML INH SOL NEB ONE (17:30)
[2022-02-24] MEDS ORDERED: methylPREDNISolone SOD SUCC 125 MG/2 ML VL IV ONE (17:30)
[2022-02-24] MEDS ORDERED: ALBUTEROL SULF 2.5 MG/0.5ML(0.5%) NEB SOLN NEB ONE (17:30)
[2022-02-24 18:03] LABS: Albumin 2.9 g/dL (3.4-5.0); Calcium 8.5 mg/dL (8.5-10.1)
[2022-02-24 18:06] LABS: BUN/Creatinine Ratio 9.7; Bilirubin, Total 0.2 mg/dL (0.2-1.0); Total Protein 6.1 g/dL (6.4-8.2)
[2022-02-24] MEDS ORDERED: PROPOFOL 10 MG/ML 20 ML IV ONE (18:15)
[2022-02-24] MEDS ORDERED: fentaNYL CITRATE 100 MCG/2 ML VL IV ONE (18:15)
[2022-02-24 18:19] LABS: Hemoglobin 13.8 g/dL (13.5-17.5)
[2022-02-24 18:20] LABS: Hematocrit 45.3 % (41.0-53.0); Mean Corpuscular Hemoglobin 28.1 pg (28.0-32.0); Mean Corpuscular Hgb Conc. 30.5 g/dL (32.0-36.0); Red Blood Cells 4.92 10^6/uL (4.5-5.90); Red Cell Distribution Width 14.5 % (11.8-14.3)
[2022-02-24 18:38] LABS: Basophils % (manual) 0 (0.0-2.0); Blast Cells 0; Myelocytes % 0; Promyelocytes % 0; Reactive Lymphocytes 0
[2022-02-24] MEDS: MAGNESIUM SULFATE 1GM/100ML 100 ML IV SCH (18:49)
[2022-02-24] MEDS: fentaNYL Drip 2500mCg/250mlNS 250 ML IV SCH (18:57)
[2022-02-24] MEDS: PROPOFOL 100 ML IV SCH ×2 (19:01→21:14)
[2022-02-24 19:06] LABS: Alcohol, Urine < 3.0 mg/dL (0-10); Amphetamine Screen, Urine POSITIVE (NEGATIVE); Barbiturate Scree,Urine NEGATIVE (NEGATIVE); Benzodiazephine Screen, Urine NEGATIVE (NEGATIVE); Cannabinoid Screen, Urine NEGATIVE (NEGATIVE); Cocaine Screen, Urine POSITIVE (NEGATIVE); Opiate Scree,Urine NEGATIVE (NEGATIVE); Phencyclidine Screen, Urine NEGATIVE (NEGATIVE)
[2022-02-24] MEDS ORDERED: ROCURONIUM 10MG/ML 10ML VIAL IV ONE ×2 (19:15→19:38)
[2022-02-24 19:36] LABS: Band Neutrophils % (manual) 12; Eosinophils % (manual) 4 (0-7); Lymphocytes % (manual) 30 (10.0-50.0); Metamyelocytes % 6; Monocytes % (manual) 5 (0-12)
[2022-02-24] MEDS ORDERED: ACETAMINOPHEN 650 MG RECT SUPP PR ONE (20:00)
[2022-02-24] MEDS ORDERED: ACETAMINOPHEN 650 mg PER 20.3 mL UD PO ONE (21:15)
[2022-02-24] MEDS ORDERED: cefTRIAXone 1GM/50ML D5W 50 ML IV ONE (21:45)
[2022-02-25] VITALS (102 sets, daily range): BP systolic 90–185; BP diastolic 45–115
[2022-02-25] MEDS ORDERED: MAGNESIUM SULFATE 1GM/100ML 100 ML IV ONE (00:04)
[2022-02-25] MEDS: MAGNESIUM SULFATE 1GM/100ML 100 ML IV SCH (00:06)
[2022-02-25] MEDS: PROPOFOL 100 ML IV SCH ×3 (00:08→08:59)
[2022-02-25] MEDS: SODIUM CHLORIDE 0.9% 1,000 ML IV SCH ×3 (04:21→17:45)
[2022-02-25] MEDS: cefTRIAXone 1GM/50ML D5W 50 ML IV SCH (08:54)
[2022-02-25] MEDS: fentaNYL Drip 2500mCg/250mlNS 250 ML IV SCH (09:10)
[2022-02-25] MEDS ORDERED: OPTISON 3ml Vial for INJ IV ONE ×2 (10:24→10:45)
[2022-02-25] MEDS: ENOXAPARIN SOD 40 MG/0.4 ML SYRINGE SC SCH (10:37)
[2022-02-25 10:54] LABS: Hemoglobin 14.7 g/dL (13.5-17.5)
[2022-02-25 10:55] LABS: Hematocrit 46.6 % (41.0-53.0); Mean Corpuscular Hemoglobin 28.1 pg (28.0-32.0); Mean Corpuscular Hgb Conc. 31.6 g/dL (32.0-36.0); Mean Corpuscular Volume 88.8 fL (80.0-100.0); Red Blood Cells 5.25 10^6/uL (4.5-5.90); Red Cell Distribution Width 14.2 % (11.8-14.3); White Blood Cell 29.8 10^3/uL (4.4-10.8)
[2022-02-25 11:17] LABS: Albumin 3.1 g/dL (3.4-5.0); Calcium 7.7 mg/dL (8.5-10.1); Potassium 4.9 mmol/L (3.5-5.1)
[2022-02-25 11:23] LABS: BUN/Creatinine Ratio 13.4; Bilirubin, Total 0.8 mg/dL (0.2-1.0); Total Protein 6.7 g/dL (6.4-8.2)
[2022-02-25 12:20] LABS: Band Neutrophils % (manual) 0; Basophils % (manual) 0 (0.0-2.0); Blast Cells 0; Eosinophils % (manual) 0 (0-7); Metamyelocytes % 0; Myelocytes % 0; Promyelocytes % 0; Reactive Lymphocytes 0
[2022-02-25] MEDS ORDERED: methylPREDNISolone SOD SUCC 40 MG/ML VL IV ONE (12:30)
[2022-02-25] MEDS ORDERED: EPINEPHrine HCL 1 MG/10 ML SYRG IV ONE (12:51)
[2022-02-25] MEDS ORDERED: AZITHROMYCIN 500MG/ 250ML 250 ML IV ONE (13:30)
[2022-02-25 14:20] LABS: Lymphocytes % (manual) 6 (10.0-50.0); Monocytes % (manual) 4 (0-12)
[2022-02-25] MEDS: methylPREDNISolone SOD SUCC 40 MG/ML VL IV SCH ×2 (14:44→21:42)
[2022-02-25] MEDS: ACETAMINOPHEN 650 mg PER 20.3 mL UD NG PRN ×2 (14:45→22:32)
[2022-02-25 18:58] LABS: Lactic Acid w/Reflex 2.9 mmol/L (0.4-2.0)
[2022-02-25] MEDS: hydrALAZINE HCL 20 MG/ML VL IV PRN (20:11)
[2022-02-25] MEDS: METOPROLOL TARTRATE 25 MG TAB GT SCH (21:42)
[2022-02-26] VITALS (99 sets, daily range): BP systolic 61–209; BP diastolic 22–136
[2022-02-26] MEDS ORDERED: LABETALOL HCL 5 MG/ML 4ML SYRINGE IV ONE ×2 (01:00→01:17)
[2022-02-26] MEDS: hydrALAZINE HCL 20 MG/ML VL IV PRN (02:49)
[2022-02-26] MEDS: SODIUM CHLORIDE 0.9% 1,000 ML IV SCH ×3 (03:11→22:29)
[2022-02-26] MEDS: PROPOFOL 100 ML IV SCH ×3 (03:33→06:50)
[2022-02-26 04:09] LABS: Mean Corpuscular Volume 88.1 fL (80.0-100.0)
[2022-02-26 04:11] LABS: Hematocrit 48.7 % (41.0-53.0); Hemoglobin 15.3 g/dL (13.5-17.5); Mean Corpuscular Hemoglobin 27.7 pg (28.0-32.0); Mean Corpuscular Hgb Conc. 31.4 g/dL (32.0-36.0); Red Blood Cells 5.52 10^6/uL (4.5-5.90); Red Cell Distribution Width 14.5 % (11.8-14.3)
[2022-02-26 04:44] LABS: White Blood Cell 34.2 10^3/uL (4.4-10.8)
[2022-02-26 04:46] LABS: Basophils % (manual) 0 (0.0-2.0); Blast Cells 0; Eosinophils % (manual) 0 (0-7); Metamyelocytes % 0; Myelocytes % 0; Promyelocytes % 0; Reactive Lymphocytes 0
[2022-02-26] MEDS: methylPREDNISolone SOD SUCC 40 MG/ML VL IV SCH ×3 (05:33→22:29)
[2022-02-26] MEDS: ACETAMINOPHEN 650 mg PER 20.3 mL UD NG PRN (05:34)
[2022-02-26 07:43] LABS: Band Neutrophils % (manual) 4; Lymphocytes % (manual) 4 (10.0-50.0); Monocytes % (manual) 5 (0-12)
[2022-02-26] MEDS: cefTRIAXone 1GM/50ML D5W 50 ML IV SCH (08:43)
[2022-02-26 10:08] LABS: BUN/Creatinine Ratio 16.7; Calcium 8.4 mg/dL (8.5-10.1); Potassium 4.1 mmol/L (3.5-5.1)
[2022-02-26] MEDS: AZITHROMYCIN 500MG/ 250ML 250 ML IV SCH (10:17)
[2022-02-26] MEDS: ENOXAPARIN SOD 40 MG/0.4 ML SYRINGE SC SCH (10:24)
[2022-02-26] MEDS: METOPROLOL TARTRATE 25 MG TAB GT SCH ×2 (10:24→22:00)
[2022-02-26] MEDS: fentaNYL Drip 2500mCg/250mlNS 250 ML IV SCH (11:24)
[2022-02-26] MEDS: NOREPINEPHRINE 8 MG/250ML KIT 250 ML IV SCH (15:26)
[2022-02-26] MEDS: ALBUTEROL SULF 2.5 MG/0.5ML(0.5%) NEB SOLN NEB SCH ×2 (19:43→22:44)
[2022-02-26] MEDS: IPRATROPIUM BROM 0.5 MG/2.5ML INH SOL NEB SCH ×2 (19:43→22:44)
[2022-02-27] VITALS (106 sets, daily range): BP systolic 81–138; BP diastolic 30–73
[2022-02-27] MEDS: ALBUTEROL SULF 2.5 MG/0.5ML(0.5%) NEB SOLN NEB SCH ×5 (02:23→22:00)
[2022-02-27] MEDS: IPRATROPIUM BROM 0.5 MG/2.5ML INH SOL NEB SCH ×5 (02:23→22:00)
[2022-02-27 04:15] LABS: Hematocrit 43.4 % (41.0-53.0); Hemoglobin 13.7 g/dL (13.5-17.5); Mean Corpuscular Hgb Conc. 31.5 g/dL (32.0-36.0); Mean Corpuscular Volume 88.9 fL (80.0-100.0); Red Blood Cells 4.88 10^6/uL (4.5-5.90); Red Cell Distribution Width 14.9 % (11.8-14.3); White Blood Cell 27.3 10^3/uL (4.4-10.8)
[2022-02-27 04:20] LABS: Basophils % (manual) 0 (0.0-2.0); Blast Cells 0; Eosinophils % (manual) 0 (0-7); Metamyelocytes % 0; Myelocytes % 0; Promyelocytes % 0; Reactive Lymphocytes 0
[2022-02-27 04:29] LABS: Calcium 8.4 mg/dL (8.5-10.1); Potassium 4.3 mmol/L (3.5-5.1)
[2022-02-27 05:08] LABS: Band Neutrophils % (manual) 1; Lymphocytes % (manual) 3 (10.0-50.0); Monocytes % (manual) 5 (0-12)
[2022-02-27] MEDS: methylPREDNISolone SOD SUCC 40 MG/ML VL IV SCH ×2 (06:51→14:38)
[2022-02-27] MEDS: METOPROLOL TARTRATE 25 MG TAB GT SCH ×2 (09:50→22:00)
[2022-02-27] MEDS: cefTRIAXone 1GM/50ML D5W 50 ML IV SCH (09:51)
[2022-02-27] MEDS: AZITHROMYCIN 500MG/ 250ML 250 ML IV SCH (09:51)
[2022-02-27] MEDS: ENOXAPARIN SOD 40 MG/0.4 ML SYRINGE SC SCH (09:51)
[2022-02-27] MEDS: SODIUM CHLORIDE 0.9% 1,000 ML IV SCH (09:52)
[2022-02-27] MEDS: fentaNYL Drip 2500mCg/250mlNS 250 ML IV SCH (18:15)
[2022-02-27] MEDS: PROPOFOL 100 ML IV SCH (18:15)
[2022-02-28] VITALS (106 sets, daily range): BP systolic 82–153; BP diastolic 40–75
[2022-02-28] MEDS: SODIUM CHLORIDE 0.9% 1,000 ML IV SCH (00:01)
[2022-02-28] MEDS: NOREPINEPHRINE 8 MG/250ML KIT 250 ML IV SCH ×2 (00:01→15:15)
[2022-02-28] MEDS: methylPREDNISolone SOD SUCC 40 MG/ML VL IV SCH ×4 (00:02→22:50)
[2022-02-28] MEDS: ALBUTEROL SULF 2.5 MG/0.5ML(0.5%) NEB SOLN NEB SCH ×6 (02:20→22:06)
[2022-02-28] MEDS: IPRATROPIUM BROM 0.5 MG/2.5ML INH SOL NEB SCH ×6 (02:20→22:06)
[2022-02-28 04:17] LABS: Basophils # (auto) 0 10 ^3/uL (0-0.2); Eosinophils # (auto) 0 10 ^3/uL (0-0.8); Eosinophils % (auto) 0.1 % (0.0-7.0); Hematocrit 43.9 % (41.0-53.0); Hemoglobin 14.1 g/dL (13.5-17.5); Lymphocytes # (auto) 0.5 10 ^3/uL (0.4-5.4); Lymphocytes % (auto) 2.6 % (10.0-50.0); Mean Corpuscular Hgb Conc. 32.1 g/dL (32.0-36.0); Mean Corpuscular Volume 90.3 fL (80.0-100.0); Monocytes # (auto) 1.6 10 ^3/uL (0-1.3); Monocytes % (auto) 7.6 % (0.0-12.0); Neutrophils # (auto) 18.4 10 ^3/uL (1.6-8.6); Neutrophils % (auto) 89.7 % (37.0-80.0); Nucleated Red Blood Cells % 0.1 %; Red Blood Cells 4.87 10^6/uL (4.5-5.90); Red Cell Distribution Width 15.3 % (11.8-14.3); White Blood Cell 20.6 10^3/uL (4.4-10.8)
[2022-02-28 04:27] LABS: Calcium 9.8 mg/dL (8.5-10.1)
[2022-02-28 04:34] LABS: BUN/Creatinine Ratio 22.5; Potassium 1.9 mmol/L (3.5-5.1)
[2022-02-28] MEDS ORDERED: LACTATED RINGER'S 1,000 ML IV ONE (05:15)
[2022-02-28] MEDS ORDERED: DEXTROSE (50%) 50ML SYRG IV PRN (05:15)
[2022-02-28] MEDS: POTASSIUM CHL 20MEQ/100ML 100 ML IV SCH ×8 (05:30→22:57)
[2022-02-28] MEDS: ACCU-CHEK COMFORT CURVE STRIP VI SCH ×4 (05:55→21:07)
[2022-02-28] MEDS: InsuLIN REG 1unit/0.01ml Soln (100units/ml) SC SCH ×4 (05:56→21:12)
[2022-02-28] MEDS ORDERED: SOD CHL 0.45% 1,000 ML IV SCH (06:30)
[2022-02-28] MEDS: cefTRIAXone 1GM/50ML D5W 50 ML IV SCH (08:28)
[2022-02-28 08:53] LABS: INR 0.91 (0.9-1.15); Partial Thromboplastin Time 20.7 sec (24.6-33.4)
[2022-02-28] MEDS: ENOXAPARIN SOD 40 MG/0.4 ML SYRINGE SC SCH (09:33)
[2022-02-28] MEDS: AZITHROMYCIN 500MG/ 250ML 250 ML IV SCH (09:33)
[2022-02-28] MEDS: METOPROLOL TARTRATE 25 MG TAB GT SCH (09:38)
[2022-02-28] MEDS ORDERED: POTASSIUM CHL 20MEQ/100ML 100 ML IV SCH (11:45)
[2022-02-28] MEDS: D5W 5% 1,000 ML IV SCH ×3 (12:10→18:52)
[2022-02-28] MEDS: INSULIN LANTUS (GLARGINE) 1 /0.01ml (100units/ml) SC SCH ×2 (12:13→22:51)
[2022-02-28] MEDS ORDERED: POTASSIUM EFFERVESENT TAB 25 MEQ GT ONE (16:15)
[2022-02-28] MEDS: fentaNYL Drip 2500mCg/250mlNS 250 ML IV SCH (18:15)
[2022-02-28] MEDS: PROPOFOL 100 ML IV SCH (18:15)
[2022-03-01] VITALS (104 sets, daily range): BP systolic 94–208; BP diastolic 45–114
[2022-03-01] MEDS: ACCU-CHEK COMFORT CURVE STRIP VI SCH ×6 (00:32→21:46)
[2022-03-01] MEDS: InsuLIN REG 1unit/0.01ml Soln (100units/ml) SC SCH ×6 (00:34→20:00)
[2022-03-01] MEDS: D5W 5% 1,000 ML IV SCH ×2 (01:27→20:31)
[2022-03-01] MEDS: IPRATROPIUM BROM 0.5 MG/2.5ML INH SOL NEB SCH ×6 (02:15→22:27)
[2022-03-01] MEDS: ALBUTEROL SULF 2.5 MG/0.5ML(0.5%) NEB SOLN NEB SCH ×6 (02:15→22:27)
[2022-03-01 03:07] LABS: BUN/Creatinine Ratio 19.7; Calcium 9.2 mg/dL (8.5-10.1)
[2022-03-01 03:15] LABS: Potassium 6.4 mmol/L (3.5-5.1)
[2022-03-01] MEDS: methylPREDNISolone SOD SUCC 40 MG/ML VL IV SCH (05:54)
[2022-03-01] MEDS: NOREPINEPHRINE 8 MG/250ML KIT 250 ML IV SCH (05:56)
[2022-03-01] MEDS: INSULIN LANTUS (GLARGINE) 1 /0.01ml (100units/ml) SC SCH ×2 (06:01→21:46)
[2022-03-01 07:16] LABS: Basophils # (auto) 0 10 ^3/uL (0-0.2); Basophils % (auto) 0.1 % (0.0-2.0); Eosinophils # (auto) 0 10 ^3/uL (0-0.8)
[2022-03-01 07:17] LABS: Hematocrit 45.8 % (41.0-53.0); Hemoglobin 14.3 g/dL (13.5-17.5); Lymphocytes # (auto) 0.8 10 ^3/uL (0.4-5.4); Lymphocytes % (auto) 3.9 % (10.0-50.0); Mean Corpuscular Hgb Conc. 31.2 g/dL (32.0-36.0); Mean Corpuscular Volume 89.8 fL (80.0-100.0); Monocytes # (auto) 1.9 10 ^3/uL (0-1.3); Monocytes % (auto) 9.1 % (0.0-12.0); Neutrophils # (auto) 18.1 10 ^3/uL (1.6-8.6); Neutrophils % (auto) 86.9 % (37.0-80.0); Nucleated Red Blood Cells % 0.1 %; Red Cell Distribution Width 15.2 % (11.8-14.3); White Blood Cell 20.8 10^3/uL (4.4-10.8)
[2022-03-01 07:33] LABS: BUN/Creatinine Ratio 19.7; Calcium 9.1 mg/dL (8.5-10.1)
[2022-03-01 07:42] LABS: Potassium 6.9 mmol/L (3.5-5.1)
[2022-03-01] MEDS ORDERED: SODIUM BICARBONATE 8.4 % INJ 50ML VIAL IV ONE (09:00)
[2022-03-01] MEDS ORDERED: ALBUTEROL SULF 2.5 MG/0.5ML(0.5%) NEB SOLN NEB ONE (09:00)
[2022-03-01] MEDS ORDERED: BUMETANIDE 2.5mg/10ml (0.25 mg/ml) INJ IV ONE (09:00)
[2022-03-01] MEDS ORDERED: DEXTROSE (50%) 50ML SYRG IV ONE ×2 (09:00→14:30)
[2022-03-01] MEDS ORDERED: SODIUM BICARBONATE 50ML VIAL 150 ML in D5W 5% 1,000 ML IV SCH (09:00)
[2022-03-01] MEDS ORDERED: InsuLIN REG 1unit/0.01ml Soln (100units/ml) IV ONE ×2 (09:00→14:30)
[2022-03-01] MEDS ORDERED: CALCIUM GLUC 1,000mg/50ml-NS 50 ML IV ONE ×2 (09:00→14:30)
[2022-03-01] MEDS: ENOXAPARIN SOD 40 MG/0.4 ML SYRINGE SC SCH (09:27)
[2022-03-01] MEDS: AZITHROMYCIN 500MG/ 250ML 250 ML IV SCH (09:28)
[2022-03-01] MEDS: cefTRIAXone 1GM/50ML D5W 50 ML IV SCH (09:28)
[2022-03-01] MEDS ORDERED: DEXTROSE (50%) 50ML SYRG IV PRN (13:00)
[2022-03-01 13:31] LABS: Potassium 5.3 mmol/L (3.5-5.1)
[2022-03-01 13:36] LABS: BUN/Creatinine Ratio 21.1
[2022-03-01] MEDS ORDERED: SOD CHL 0.45% 1,000 ML IV SCH (14:45)
[2022-03-01] MEDS: fentaNYL Drip 2500mCg/250mlNS 250 ML IV SCH (18:15)
[2022-03-01] MEDS: PROPOFOL 100 ML IV SCH (18:15)
[2022-03-01 19:57] LABS: BUN/Creatinine Ratio 23.4; Calcium 9.5 mg/dL (8.5-10.1)
[2022-03-02] VITALS (86 sets, daily range): BP systolic 86–241; BP diastolic 45–146
[2022-03-02] MEDS: ACCU-CHEK COMFORT CURVE STRIP VI SCH ×5 (00:12→15:46)
[2022-03-02] MEDS: InsuLIN REG 1unit/0.01ml Soln (100units/ml) SC SCH ×5 (00:13→15:47)
[2022-03-02] MEDS: ALBUTEROL SULF 2.5 MG/0.5ML(0.5%) NEB SOLN NEB SCH ×5 (03:17→17:59)
[2022-03-02] MEDS: IPRATROPIUM BROM 0.5 MG/2.5ML INH SOL NEB SCH ×5 (03:17→17:59)
[2022-03-02 04:03] LABS: Basophils # (auto) 0.1 10 ^3/uL (0-0.2); Basophils % (auto) 0.3 % (0.0-2.0); Eosinophils # (auto) 0 10 ^3/uL (0-0.8); Hematocrit 42.9 % (41.0-53.0); Hemoglobin 13.5 g/dL (13.5-17.5); Lymphocytes # (auto) 1.7 10 ^3/uL (0.4-5.4); Lymphocytes % (auto) 9.3 % (10.0-50.0); Mean Corpuscular Hemoglobin 27.4 pg (28.0-32.0); Mean Corpuscular Hgb Conc. 31.6 g/dL (32.0-36.0); Mean Corpuscular Volume 86.7 fL (80.0-100.0); Monocytes # (auto) 1.2 10 ^3/uL (0-1.3); Monocytes % (auto) 6.3 % (0.0-12.0); Neutrophils # (auto) 15.4 10 ^3/uL (1.6-8.6); Neutrophils % (auto) 84.1 % (37.0-80.0); Nucleated Red Blood Cells % 0.1 %; Red Blood Cells 4.94 10^6/uL (4.5-5.90); Red Cell Distribution Width 15.3 % (11.8-14.3); White Blood Cell 18.4 10^3/uL (4.4-10.8)
[2022-03-02 04:36] LABS: Potassium 5.2 mmol/L (3.5-5.1)
[2022-03-02 04:49] LABS: BUN/Creatinine Ratio 25.9; Calcium 9.2 mg/dL (8.5-10.1)
[2022-03-02] MEDS: INSULIN LANTUS (GLARGINE) 1 /0.01ml (100units/ml) SC SCH (06:34)
[2022-03-02] MEDS: cefTRIAXone 1GM/50ML D5W 50 ML IV SCH (09:04)
[2022-03-02] MEDS: D5W 5% 1,000 ML IV SCH (09:04)
[2022-03-02] MEDS: AZITHROMYCIN 500MG/ 250ML 250 ML IV SCH (09:48)
[2022-03-02] MEDS ORDERED: methylPREDNISolone SOD SUCC 40 MG/ML VL IV SCH (10:00)
[2022-03-02] MEDS ORDERED: ENOXAPARIN SOD 30 MG/0.3 ML SYRINGE SC SCH (10:00)
[2022-03-02] MEDS ORDERED: D5W 5% 1,000 ML IV SCH (11:45)
[2022-03-02] MEDS: NOREPINEPHRINE 8 MG/250ML KIT 250 ML IV SCH (15:15)
[2022-03-02] MEDS: fentaNYL Drip 2500mCg/250mlNS 250 ML IV SCH (18:15)
[2022-03-02] MEDS: PROPOFOL 100 ML IV SCH (18:15)
[2022-03-02] MEDS ORDERED: MORPHINE SULFATE INJ 2 MG/ml SYRG IV PRN (19:30)
== END 2022-03-02 11:58 | DRG 812 ==
LOC: EDBD 17:08 → ER 17:11 → TELE 20:48 → ICU WEST 22:33
PROVIDERS: ADMIT Nurse Practitioner Family; ATTEND Internal Medicine Pulmonary Disease
PROC: 5A1955Z Respiratory Ventilation, Greater than 96 Consecutive Hours (ICD-10-PCS; principal; 2022-02-24)
PROC: 0BH17EZ Insertion of Endotracheal Airway into Trachea, Via Natural or Artificial Opening (ICD-10-PCS; 2022-02-24)
PROC: 5A12012 Performance of Cardiac Output, Single, Manual (ICD-10-PCS; 2022-02-24)
DX: T50.991A Poisoning by other drugs, medicaments and biological substances, accidental (unintentional), initial encounter (principal); J96.01 Acute respiratory failure with hypoxia; I46.8 Cardiac arrest due to other underlying condition; N17.0 Acute kidney failure with tubular necrosis; A41.9 Sepsis, unspecified organism; J18.9 Pneumonia, unspecified organism; G93.41 Metabolic encephalopathy; I11.0 Hypertensive heart disease with heart failure; I50.9 Heart failure, unspecified; E87.4 Mixed disorder of acid-base balance; E87.0 Hyperosmolality and hypernatremia; J45.901 Unspecified asthma with (acute) exacerbation; Z20.822 Contact with and (suspected) exposure to COVID-19; G93.1 Anoxic brain damage, not elsewhere classified; I21.A1 Myocardial infarction type 2; G47.10 Hypersomnia, unspecified; E78.5 Hyperlipidemia, unspecified; E66.9 Obesity, unspecified; E11.65 Type 2 diabetes mellitus with hyperglycemia; E87.5 Hyperkalemia; E87.6 Hypokalemia; F14.10 Cocaine abuse, uncomplicated; F15.10 Other stimulant abuse, uncomplicated; Z83.3 Family history of diabetes mellitus; Z51.5 Encounter for palliative care; Y92.89 Other specified places as the place of occurrence of the external cause; Z88.0 Allergy status to penicillin; Z68.33 Body mass index [BMI] 33.0-33.9, adult
CPT/HCPCS: 36415; 36600; 70450; 71045; 80048; 80053; 80307; 82805; 82962; 83036; 83605; 83735; 83880; 83930; 83935; 84132; 84300; 84484; 85007; 85025; 85027; 85379; 85610; 85730; 87070; 87081; 87205; 92950; 93005; 93306; 94002; 94003; 94640; 95819; 96374; 99291; G0378; J0696; J1815; J2704; J3480; J3490; Q9956